=== PATIENT | female | born 1945 ===

== ENCOUNTER → 2024-04-03 15:49 | Outpatient (REF) | payer MEDICARE, SELFPAY | LOC: HWRCS 15:49 | PROVIDERS: ATTENDING PHYSICIAN Internal Medicine; FAMILY PHYSICIAN Family Medicine | DX: Z01.810 Encounter for preprocedural cardiovascular examination (principal); R94.31 Abnormal electrocardiogram [ECG] [EKG]; I10 Essential (primary) hypertension; E78.2 Mixed hyperlipidemia; E66.3 Overweight | CPT/HCPCS: 93306 ==

== ENCOUNTER → 2024-04-10 07:25 | Outpatient (REF) | payer MEDICARE, SELFPAY | LOC: DHCBC/DCA 07:25 | PROVIDERS: ATTENDING PHYSICIAN Internal Medicine; FAMILY PHYSICIAN Family Medicine | DX: Z01.810 Encounter for preprocedural cardiovascular examination (principal); R94.31 Abnormal electrocardiogram [ECG] [EKG]; I10 Essential (primary) hypertension; E78.2 Mixed hyperlipidemia; E66.3 Overweight | CPT/HCPCS: 78452; 93017; A9500; J2785 ==